=== PATIENT | male | born 1995 | race Native Hawaiian/Other Pacific Islander ===

== ENCOUNTER 2023-05-15 08:32 | Emergency (ER) | payer SELFPAY ==
[2023-05-15 10:46] LABS: SARS-CoV-2 Antigen Rapid Res Negative (Negative)
--- NOTE | 2023-05-15 10:49 | ER ---
Nurse's Notes [facility] Name: Uvaldo Dillon Age: 27 yrs Sex: Male : 1995 Arrival Date: 05/15/2023 Time: 08:32 Bed 11 Private MD: Diagnosis: Acute upper respiratory infection, unspecified Presentation: 05/15 08:45 Chief complaint: Patient states: Sore throat, cough, congestion, CUEVAS, fatigue, fells hot ll1 for 4-5 days. Coronavirus screen: Vaccine status: Patient reports being unvaccinated. Client denies travel out of the [place] in the last 14 days. congestion, cough unrelated to allergies, fatigue, headache, sore throat, Client presents with at least one sign or symptom that may indicate coronavirus-19. Standard/surgical mask placed on the client. Ebola Screen: Patient denies travel to an Ebola-affected area in the 21 days before illness onset. Initial Sepsis Screen: Does the patient meet any 2 criteria? No. Patient's initial sepsis screen is negative. Does the patient have a suspected source of infection? Yes: Productive cough/pneumonia. Risk Assessment: Do you want to hurt yourself or someone else? Patient reports no desire to harm self or others. Onset of symptoms was May 10, 2023. 08:45 Method Of Arrival: Ambulatory ll1 08:45 Acuity: ENRIQUE 4 ll1 Triage Assessment: 08:46 General: Appears in no apparent distress. Behavior is calm, cooperative, appropriate ll1 for age. Pain: Denies pain. EENT: Reports nasal congestion pain when swallowing. Respiratory: Reports cough that is. GI: Reports "soft" stools. Historical: - Allergies: 08:44 seafood; ll1 08:44 Iodine; ll1 - Home Meds: 08:44 None [Active]; ll1 - PMHx: 08:44 None; ll1 - PSHx: 08:44 None; ll1 - Immunization history:: Client reports having NOT received the Covid vaccine. - Social history:: Smoking status: Patient reports the use of cigarette tobacco products, smokes one-half pack cigarettes per day, Reported history of juuling and/or vaping. Screenin:52 [facility] ED Fall Risk Assessment (Adult) History of falling in the last 3 months, bp including since admission No falls in past 3 months (0 pts). Abuse screen: Denies threats or abuse. Denies injuries from another. Nutritional screening: No deficits noted. Tuberculosis screening: No symptoms or risk factors identified. Assessment: 08:52 General: SEE TRIAGE NOTE. bp 10:45 Reassessment: No changes from previously documented assessment. Patient and/or family ll1 updated on plan of care and expected duration. Pain level reassessed. Patient is alert, oriented x 3, equal unlabored respirations, skin warm/dry/pink. 10:57 Respiratory: Airway is patent Respiratory effort is even, unlabored, Breath sounds are ll1 clear bilaterally. EENT: Nares with drainage noted Throat is reddened. Vital Signs: 08:45 BP 138 / 86; Pulse 60; Resp 16; Temp 97.9; Pulse Ox 100% on R/A; Weight 74.84 kg; ll1 Height 5 ft. 11 in. ; Pain 5/10; 10:55 BP 136 / 87; Pulse 56; Resp 17; Pulse Ox 100% ; ll1 08:45 Body Mass Index 23.01 (74.84 kg, 180.34 cm) ll1 08:45 Pain Scale: Adult ll1 ED Course: 08:34 Patient arrived in ED. rg4 08:36 Arm band placed on Patient placed in an exam room, on a stretcher. ll1 08:39 Nikos Mcqueen, JOY is Primary Nurse. bp 08:46 Triage completed. ll1 08:51 Lashanda Rodriguez PA-C is PHCP. sb4 08:51 Thong Holt MD is Attending Physician. sb4 08:52 Patient has correct armband on for positive identification. Bed in low position. Call bp light in reach. Side rails up X2. 10:12 Strep Sent. ds4 10:12 Flu Sent. ds4 10:12 SARS-COV-2 Antigen Rapid Sent. ds4 10:57 No provider procedures requiring assistance completed. Patient did not have IV access ll1 during this emergency room visit. 12:03 Provided Education on: n/a. ll1 Administered Medications: No medications were administered Medication: 08:52 VIS not applicable for this client. bp Outcome: 10:48 Discharge ordered by . sb4 10:57 Patient left the ED. ll1 10:57 Discharged to home ambulatory. ll1 10:57 Condition: stable 10:57 Discharge instructions given to patient, Instructed on discharge instructions, follow up and referral plans. medication usage, Demonstrated understanding of instructions, follow-up care, medications, Prescriptions given X 2. Signatures: Adalberto Hayes ds4 Yin Streeter4 Nikos Mcqueen, RN RN bp Carlotta Urbina RN RN ll1 Lashanda Rodriguez, PAHaimC PAVivian sb4
--- NOTE | 2023-05-15 10:49 | EDPHYS ---
Physician Documentation [facility] [place], [place] Name: Uvaldo Dillon Age: 27 yrs Sex: Male : 1995 Arrival Date: 05/15/2023 Time: 08:32 Bed 11 Private MD: ED Physician Thong Holt HPI: 05/15 10:54 This 27 yrs old Male presents to ER via Ambulatory with complaints of Cough, Sore sb4 Throat. 10:54 27 year old male presents with productive cough, sore throat, generalized weakness x 1 sb4 week. He states that he has been working and hasn't had the chance to be evaluated. Reports that his girlfriend was diagnosed with tonsilitis last week and has been taking anitbiotics. Historical: - Allergies: 08:44 seafood; ll1 08:44 Iodine; ll1 - Home Meds: 08:44 None [Active]; ll1 - PMHx: 08:44 None; ll1 - PSHx: 08:44 None; ll1 - Immunization history:: Client reports having NOT received the Covid vaccine. - Social history:: Smoking status: Patient reports the use of cigarette tobacco products, smokes one-half pack cigarettes per day, Reported history of juuling and/or vaping. ROS: 10:54 Constitutional: Negative for fever, chills, and weight loss. sb4 10:54 ENT: Positive for sinus congestion, sore throat, Negative for drainage from ear(s), rhinorrhea, difficulty swallowing, difficulty handling secretions. 10:54 Respiratory: Positive for cough, with green sputum, Negative for dyspnea on exertion, hemoptysis, shortness of breath. 10:54 All other systems are negative. Exam: 10:54 Constitutional: This is a well developed, well nourished patient who is awake, alert, sb4 and in no acute distress. Head/Face: Normocephalic, atraumatic. Eyes: Extra-ocular motions intact. Periorbital areas with no swelling, redness, or edema. Cardiovascular: Regular rate and rhythm with a normal S1 and S2. Respiratory: Lungs have equal breath sounds bilaterally, clear to auscultation and percussion. No rales, rhonchi or wheezes noted. No increased work of breathing, no retractions or nasal flaring. Abdomen/GI: Soft, non-tender, no distension. Skin: Warm, dry with normal turgor. Normal color with no rashes, no lesions, and no evidence of cellulitis. MS/ Extremity: Pulses equal, no cyanosis. Neurovascular intact. Full, normal range of motion. Vital Signs: 08:45 BP 138 / 86; Pulse 60; Resp 16; Temp 97.9; Pulse Ox 100% on R/A; Weight 74.84 kg; ll1 Height 5 ft. 11 in. ; Pain 5/10; 10:55 BP 136 / 87; Pulse 56; Resp 17; Pulse Ox 100% ; ll1 08:45 Body Mass Index 23.01 (74.84 kg, 180.34 cm) ll1 08:45 Pain Scale: Adult ll1 MDM: 08:51 Patient medically screened. sb4 10:54 Differential Diagnosis: Bronchitis Influenza Upper Respiratory Infection Sinusitis sb4 Pharyngitis Viral Syndrome Pneumonia. Data reviewed: vital signs, nurses notes, lab test result(s), and as a result, I will discharge patient. Counseling: I had a detailed discussion with the patient and/or guardian regarding: the historical points, exam findings, and any diagnostic results supporting the discharge/admit diagnosis, lab results, to return to the emergency department if symptoms worsen or persist or if there are any questions or concerns that arise at home. 05/15 08:56 Order name: SARS-COV-2 Antigen Rapid; Complete Time: 10:47 sb4 05/15 08:56 Order name: Flu; Complete Time: 10:47 sb4 05/15 08:56 Order name: Strep sb4 05/15 10:47 Order name: Throat Culture EDMS Administered Medications: No medications were administered Disposition: 13:16 Co-signature as Attending Physician, Thong Holt MD I reviewed the patient's care rn provided by the Advanced Practice Provider and agree with the diagnosis and treatment plan. Disposition Summary: 05/15/23 10:48 Discharge Ordered Location: Home sb4 Problem: an ongoing problem sb4 Symptoms: are unchanged sb4 Condition: Stable sb4 Diagnosis - Acute upper respiratory infection, unspecified sb4 Followup: sb4 - With: Private Physician - When: As needed - Reason: Recheck today's complaints, Continuance of care, Re-evaluation by your physician Discharge Instructions: - Discharge Summary Sheet ll1 - Upper Respiratory Infection, Adult, [id number] sb4 Forms: - Work release form ll1 - Medication Reconciliation Form sb4 - Thank You Letter sb4 - Antibiotic Education sb4 - Prescription Opioid Use sb4 - [email or web address] sb4 Prescriptions: - Augmentin 875-125 mg Oral Tablet - take 1 tablet by ORAL route every 12 hours for 10 days; 20 tablet; Refills: 0, sb4 Product Selection Permitted - Tessalon Perles 100 mg Oral Capsule - take 1 capsule by ORAL route every 8 hours As needed; 15 capsule; Refills: 0, sb4 Product Selection Permitted Signatures: Dispatcher [employer] Thong Acosta MD MD rn Lewis, Lynsay, RN RN ll1 Lashanda Rodriguez PA-C PA-C sb4
[2023-05-15 11:40] VITALS: BP 138/86; TEMP 97.9; O2SAT 100
== END 2023-05-15 10:57 | disposition home or self-care (01) ==
LOC: ER 08:32
DX: J06.9 Acute upper respiratory infection, unspecified (principal); F17.210 Nicotine dependence, cigarettes, uncomplicated; Z20.822 Contact with and (suspected) exposure to COVID-19; Z91.013 Allergy to seafood; Z91.048 Other nonmedicinal substance allergy status
CPT/HCPCS: 36415; 87070; 87081; 87804; 87811; 99283

== ENCOUNTER → 2024-01-03 | Emergency (ER) | payer SELFPAY ==
[2024-01-03 07:41] LABS: SARS-CoV-2 Antigen Rapid Res Negative (Negative)
--- NOTE | 2024-01-03 09:10 | EDPHYS ---
Physician Documentation [facility] Name: Uvaldo Dillon Age: 28 yrs Sex: Male : 1995 Arrival Date: 01/03/2024 Time: 06:45 Bed 12 Private MD: ED Physician Thong Holt HPI: 01/03 06:55 This 28 yrs old Male presents to ER via Unassigned with complaints of Cough, sp4 Congestion, Sore Throat. 07:13 The patient or guardian reports cough, flu symptoms, myalgias, no appetite. Onset: The rn symptoms/episode began/occurred 5 day(s) ago. Severity of symptoms: At their worst the symptoms were mild, in the emergency department the symptoms are unchanged. Modifying factors: The symptoms are alleviated by nothing, the symptoms are aggravated by nothing. Associated signs and symptoms: Pertinent positives: diarrhea, fever, rhinorrhea, sore throat, Pertinent negatives: vomiting. The patient has not experienced similar symptoms in the past. The patient has not recently seen a physician. Historical: - Allergies: 07:01 Iodine; jb4 07:01 SEAFOOD; jb4 - PMHx: 07:05 None; jb4 - PSHx: 07:05 None; jb4 - Immunization history:: Adult Immunizations up to date. - Social history:: Smoking status: Reported history of juuling and/or vaping. - Family history:: not pertinent. - Hospitalizations: : No recent hospitalization is reported. ROS: 07:13 Constitutional: + subjective fever and chills Cardiovascular: Negative for chest pain, rn palpitations, and edema, Respiratory: + cough Abdomen/GI: + nausea/vomiting/diarrhea MS/Extremity: Negative for injury and deformity, Skin: Negative for injury, rash, and discoloration, Neuro: + generalized weakness, + headache Exam: 07:13 Constitutional: This is a well developed, well nourished patient who is awake, alert, rn and in no acute distress. Head/Face: Normocephalic, atraumatic. ENT: Clear nasal drainage, no stridor, mild pharyngeal erythema Neck: Trachea midline, no cervical lymphadenopathy. Supple, full range of motion without nuchal rigidity, or vertebral point tenderness. No Meningismus. Cardiovascular: Regular rate and rhythm. No pulse deficits. Respiratory: No increased work of breathing, no retractions or nasal flaring. Abdomen/GI: Soft, non-tender Neuro: Awake and alert, GCS 15 Vital Signs: 07:05 BP 141 / 73; Pulse 65; Resp 16; Temp 98.3; Pulse Ox 100% ; Weight 79.38 kg; Height 5 jb4 ft. 11 in. ; Pain 4/10; 09:16 BP 135 / 96; Pulse 85; Resp 16; Pulse Ox 100% on R/A; ll1 07:05 Body Mass Index 24.41 (79.38 kg, 180.34 cm) jb4 07:05 Pain Scale: Adult jb4 MDM: 06:57 Patient medically screened. sp4 09:08 Differential Diagnosis: Influenza Upper Respiratory Infection Sinusitis Pharyngitis rn Viral Syndrome. Data reviewed: vital signs, nurses notes, lab test result(s), and as a result, I will discharge patient. Counseling: I had a detailed discussion with the patient and/or guardian regarding the historical points, exam findings, and any diagnostic results supporting the discharge/admit diagnosis, lab results, the need for outpatient follow up, to return to the emergency department if symptoms worsen or persist or if there are any questions or concerns that arise at home. Special discussion: I discussed with the patient/guardian in detail that at this point there is no indication for admission to the hospital. It is understood, however, that if the symptoms persist or worsen the patient needs to return immediately for re-evaluation. 09:09 ED course: Patient outside of treatment window for Tamiflu.. rn 01/03 06:55 Order name: SARS RAPID sp4 01/03 06:55 Order name: Influenza Screen (a \T\ B) 4 01/03 07:10 Order name: Strep rn 01/03 07:45 Order name: Throat Culture EDMS Administered Medications: No medications were administered Disposition Summary: 01/03/24 09:08 Discharge Ordered Notes: Location: Home rn Problem: new rn Symptoms: have improved rn Condition: Stable rn Diagnosis - Influenza due to identified novel influenza A virus with other respiratory rn manifestations Followup: rn - With: Private Physician - When: As needed - Reason: Recheck today's complaints, Re-evaluation by your physician Discharge Instructions: - Influenza, Adult rn - Discharge Summary Sheet ll1 Forms: - Medication Reconciliation Form rn - Thank You Letter rn - Antibiotic pattern and chain maker - Prescription Opioid Use rn - Patient Portal Instructions rn - Leadership Thank You Letter rn - Work release form ll1 Signatures: Dispatcher [employer] Thong Acosta MD MD rn Bryson, James, RN RN jb4 Jefe Somers MD MD sp4
--- NOTE | 2024-01-03 09:10 | ER ---
Nurse's Notes [facility] Name: Uvaldo Dillon Age: 28 yrs Sex: Male : 1995 Arrival Date: 01/03/2024 Time: 06:45 Bed 12 Private MD: Diagnosis: Influenza due to identified novel influenza A virus with other respiratory manifestations Presentation: 01/03 07:05 Chief complaint: Patient states: Cough, congestion, sore throat, body aches, CUEVAS since jb4 Monday. Coronavirus screen: Vaccine status: Patient reports being unvaccinated. Client denies travel out of the [place] in the last 14 days. congestion, cough unrelated to allergies, fatigue, headache, runny nose, Client presents with at least one sign or symptom that may indicate coronavirus-19. Standard/surgical mask placed on the client. Ebola Screen: Patient denies travel to an Ebola-affected area in the 21 days before illness onset. Resp Distress? No respiratory distress is noted at this time. Initial Sepsis Screen: Does the patient meet any 2 criteria? No. Patient's initial sepsis screen is negative. Does the patient have a suspected source of infection? No. Patient's initial sepsis screen is negative. Risk Assessment: Do you want to hurt yourself or someone else? Patient reports no desire to harm self or others. Onset of symptoms was December 30, 2023. 07:05 Method Of Arrival: Ambulatory jb4 07:05 Acuity: ENRIQUE 4 jb4 Triage Assessment: 08:46 General: Appears uncomfortable, Behavior is calm, cooperative, appropriate for age. ll1 Pain: Complains of pain in head Quality of pain is described as aching. EENT: Reports pain when swallowing. Neuro: Reports headache. Respiratory: Reports cough that is. 09:17 Respiratory: Breath sounds are clear bilaterally. ll1 Historical: - Allergies: 07:01 Iodine; jb4 07:01 SEAFOOD; jb4 - PMHx: 07:05 None; jb4 - PSHx: 07:05 None; jb4 - Immunization history:: Adult Immunizations up to date. - Social history:: Smoking status: Reported history of juuling and/or vaping. - Family history:: not pertinent. - Hospitalizations: : No recent hospitalization is reported. Screenin:12 [facility] ED Fall Risk Assessment (Adult) Score/Fall Risk Level 0 - 2 = Low Risk jb4 Oriented to surroundings, Maintained a safe environment, Educated pt \T\ family on fall prevention, incl call for assistance when getting out of bed, Hourly rounding (assess needs \T\ fall precautionary measures) done. Abuse screen: Denies threats or abuse. Nutritional screening: No deficits noted. Tuberculosis screening: No symptoms or risk factors identified. Assessment: 07:12 General: Appears in no apparent distress. Behavior is calm, cooperative, appropriate jb4 for age. Pain: Complains of pain in head Pain currently is 4 out of 10 on a pain scale. Quality of pain is described as aching. Neuro: Reports headache. Cardiovascular: Capillary refill < 3 seconds Clubbing of nail beds is absent Patient's skin is warm and dry. Respiratory: Reports cough that is Airway is patent. EENT: Reports nasal congestion pain when swallowing. 07:19 Reassessment: No changes from previously documented assessment. Patient and/or family jb4 updated on plan of care and expected duration. Pain level reassessed. Patient is alert, oriented x 3, equal unlabored respirations, skin warm/dry/pink. 08:25 Reassessment: No changes from previously documented assessment. Patient and/or family ll1 updated on plan of care and expected duration. Pain level reassessed. Patient is alert, oriented x 3, equal unlabored respirations, skin warm/dry/pink. 09:16 Reassessment: No changes from previously documented assessment. Patient and/or family ll1 updated on plan of care and expected duration. Pain level reassessed. Patient is alert, oriented x 3, equal unlabored respirations, skin warm/dry/pink. Vital Signs: 07:05 BP 141 / 73; Pulse 65; Resp 16; Temp 98.3; Pulse Ox 100% ; Weight 79.38 kg; Height 5 jb4 ft. 11 in. ; Pain 4/10; 09:16 BP 135 / 96; Pulse 85; Resp 16; Pulse Ox 100% on R/A; ll1 07:05 Body Mass Index 24.41 (79.38 kg, 180.34 cm) jb4 07:05 Pain Scale: Adult jb4 ED Course: 06:48 Patient arrived in ED. jj6 06:55 Jefe Somers MD is Attending Physician. sp4 07:01 Arm band placed on. jb4 07:06 Triage completed. jb4 07:06 Patient placed in an exam room, on a stretcher. jb4 07:09 Attending Physician role handed off by Jefe Somers MD rn 07:09 Thong Holt MD is Attending Physician. rn 07:11 Nitin Faust, RN is Primary Nurse. jb4 07:11 Influenza Screen (a \T\ B) Sent. jb4 07:11 SARS RAPID Sent. jb4 07:13 Patient has correct armband on for positive identification. Bed in low position. Call jb4 light in reach. Provided Education on: ER procedures and process. Cardiac monitoring not applicable on this patient. 07:19 Strep Sent. jb4 09:17 No provider procedures requiring assistance completed. Patient did not have IV access ll1 during this emergency room visit. Administered Medications: No medications were administered Medication: 09:17 VIS not applicable for this client. ll1 Outcome: 09:08 Discharge ordered by MD. rn 09:17 Discharged to home ambulatory, ll1 09:17 Condition: stable 09:17 Discharge instructions given to patient, Instructed on discharge instructions, follow up and referral plans. Demonstrated understanding of instructions, follow-up care, 09:17 Patient left the ED. ll1 Signatures: Thong Holt MD MD rn Bryson, James, RN RN jb4 Lewis, Lynsay, RN RN ll1 Alexandria Muhammad jj6 Jefe Somers MD MD sp4 Corrections: (The following items were deleted from the chart) 07:12 07:05 BP 141 / 73; Pulse 65bpm; Resp 16bpm; Pulse Ox 100%; 79.38 kg; Height 5 ft. 11 jb4 in.; BMI: 24.4; Pain 4/10, Adult; jb4
[2024-01-03 09:45] VITALS: BP 135/96; TEMP 98.3; O2SAT 100
== END ==
LOC: ER 06:45
DX: J10.1 Influenza due to other identified influenza virus with other respiratory manifestations (principal); Z11.52 Encounter for screening for COVID-19; Z91.013 Allergy to seafood; Z91.048 Other nonmedicinal substance allergy status
CPT/HCPCS: 36415; 87070; 87081; 87804; 87811

== ENCOUNTER 2025-02-18 21:09 | Emergency (ER) | payer SELFPAY ==
--- NOTE | 2025-02-18 22:04 | EDPHYS ---
Physician Documentation [facility] Name: Uvaldo Dillon Age: 29 yrs Sex: Male : 1995 Arrival Date: 02/18/2025 Time: 21:09 Bed IW3 Private MD: ED Physician Yusef Oshea HPI: 02/18 21:58 This 29 yrs old Male presents to ER via Ambulatory with complaints of Cyst, ronak Groin Pain. 21:58 The patient presents with an abscess of the right leg, The patient presents with ronak cellulitis of the right leg. Description: The affected area is small, moderate sized, localized, erythematous, fluctuant, raised, swollen. Onset: The symptoms/episode began/occurred 1 day(s) ago. Associated signs and symptoms: The patient has no apparent associated signs or symptoms. Severity of symptoms: At their worst the symptoms were mild, moderate, in the emergency department the symptoms are unchanged. The patient has not experienced similar symptoms in the past. Historical: - Allergies: 21:45 Iodine; bm8 21:45 SEAFOOD; bm8 - Home Meds: 21:45 None [Active]; bm8 - PMHx: 21:45 None; bm8 - PSHx: 21:45 None; bm8 - Immunization history:: Adult Immunizations not up to date. - Infectious Disease History:: Denies. - Social history:: Smoking status: Reported history of juuling and/or vaping. - Family history:: not pertinent. ROS: 21:58 Constitutional: Negative for fever, chills, and weight loss, Eyes: Negative for injury, ronak pain, redness, and discharge, ENT: Negative for injury, pain, and discharge, Neck: Negative for injury, pain, and swelling, Cardiovascular: Negative for chest pain, palpitations, and edema, Respiratory: Negative for shortness of breath, cough, wheezing, and pleuritic chest pain, Abdomen/GI: Negative for abdominal pain, nausea, vomiting, diarrhea, and constipation, Back: Negative for injury and pain, : Negative for injury, bleeding, discharge, and swelling, Skin: Negative for injury, rash, and discoloration, Neuro: Negative for headache, weakness, numbness, tingling, and seizure, Psych: Negative for depression, anxiety, suicide ideation, homicidal ideation, and hallucinations, Allergy/Immunology: Negative for hives, rash, and allergies, Endocrine: Negative for neck swelling, polydipsia, polyuria, polyphagia, and marked weight changes, Hematologic/Lymphatic: Negative for swollen nodes, abnormal bleeding, and unusual bruising, 21:58 MS/extremity: Positive for decreased range of motion, erythema, pain, swelling, tenderness, of the right leg, Exam: 22:00 Constitutional: This is a well developed, well nourished patient who is awake, alert, ronak and in no acute distress. Head/Face: Normocephalic, atraumatic. Eyes: Pupils equal round and reactive to light, extra-ocular motions intact. Lids and lashes normal. Conjunctiva and sclera are non-icteric and not injected. Cornea within normal limits. Periorbital areas with no swelling, redness, or edema. ENT: Nares patent. No nasal discharge, no septal abnormalities noted. Tympanic membranes are normal and external auditory canals are clear. Oropharynx with no redness, swelling, or masses, exudates, or evidence of obstruction, uvula midline. Mucous membranes moist. Neck: Trachea midline, no thyromegaly or masses palpated, and no cervical lymphadenopathy. Supple, full range of motion without nuchal rigidity, or vertebral point tenderness. No Meningismus. Chest/axilla: Normal chest wall appearance and motion. Nontender with no deformity. No lesions are appreciated. Cardiovascular: Regular rate and rhythm with a normal S1 and S2. No gallops, murmurs, or rubs. Normal PMI, no JVD. No pulse deficits. Respiratory: Lungs have equal breath sounds bilaterally, clear to auscultation and percussion. No rales, rhonchi or wheezes noted. No increased work of breathing, no retractions or nasal flaring. Abdomen/GI: Soft, non-tender, with normal bowel sounds. No distension or tympany. No guarding or rebound. No evidence of tenderness throughout. Back: No spinal tenderness. No costovertebral tenderness. Full range of motion. Male : Normal genitalia with no discharge or lesions. MS/ Extremity: Pulses equal, no cyanosis. Neurovascular intact. Full, normal range of motion., bilateral aka Neuro: Awake and alert, GCS 15, oriented to person, place, time, and situation. Cranial nerves II-XII grossly intact. Motor strength 5/5 in all extremities. Sensory grossly intact. Cerebellar exam normal. Normal gait. Psych: Awake, alert, with orientation to person, place and time. Behavior, mood, and affect are within normal limits. 22:00 Skin: Appearance: Color: normal in color, Temperature: normal temperature, Moisture: normal moisture, petechiae, not noted, ecchymosis, not noted, flushing, not noted, diaphoresis is not appreciated, abscess, that is small, that is moderate sized, of the right inner thigh, with induration, with pointing, with surrounding cellulitis, that is mild, that is moderate, cellulitis, that is mild, that is moderate, induration, that is mild is noted, Vital Signs: 21:43 BP 138 / 76; Pulse 92; Resp 18; Temp 98.4; Pulse Ox 100% ; Weight 77.11 kg; Height 5 bm8 ft. 11 in. ; Pain 9/10; 21:43 Body Mass Index 23.71 (77.11 kg, 180.34 cm) bm8 21:43 Pain Scale: Adult bm8 MDM: 21:20 Medical Screening Exam initiated ronak 22:01 Differential diagnosis: abscess, allergic reaction, cellulitis, insect bite. Data ronak reviewed: vital signs, nurses notes. Consideration of Admission/Observation Patient was admitted/placed on observation. Escalation of care including admission/observation considered. I considered the following discharge prescriptions or medication management in the emergency department Medications were administered in the Emergency Department. See MAR. Independent interpretation of the following test(s) in the Emergency Department. Test considered but Not performed: Labs: no labs. Care significantly affected by the following chronic conditions: none. Administered Medications: 22:23 Drug: Ibuprofen PO 600 mg PO once Route: PO; vc1 22:23 Follow up: Response: Medication administered at discharge. vc1 22:23 Drug: Doxycycline PO 200 mg PO once Route: PO; vc1 22:23 Follow up: Response: Medication administered at discharge. vc1 22:23 Drug: Trimethoprim-Sulfamethoxazole PO (160 mg-800 mg (DS) 2 tablet PO once Route: PO; vc1 22:23 Follow up: Response: Medication administered at discharge. vc1 Disposition Summary: 02/18/25 22:04 Discharge Ordered Notes: Location: Home ronak Problem: new ronak Symptoms: have improved ronak Condition: Stable ronak Diagnosis - Cutaneous abscess of groin ronak - Cellulitis of groin [facility] Followup: ronak - With: Private Physician - When: 2 - 3 days - Reason: Recheck today's complaints, Continuance of care, Re-evaluation by your physician Followup: [facility] - With: Maurice Mclean MD - When: Tomorrow - Reason: Recheck today's complaints, Continuance of care, Re-evaluation by your physician Discharge Instructions: - Discharge Summary Sheet [facility] - Skin Abscess ronak - Cellulitis, Adult [facility] - How to Take a Sitz Bath ronak - Skin Abscess, [id number] ronak - Cellulitis, Adult, Panr-ab-Rimy [facility] - Lymphangitis, Adult [facility] Forms: - Medication Reconciliation Form [facility] - Antibiotic Education [facility] - Prescription Opioid Use [facility] - Patient Portal Instructions [facility] - Leadership Thank You Letter [facility] Prescriptions: - Ibuprofen 600 mg Oral Tablet - take 1 tablet ORAL route every 6 hours As needed take with food; 30 tablet; [facility] Refills: 0, Product Selection Permitted - Doxycycline Hyclate 100 mg Oral Tablet - take 1 tablet ORAL route every 12 hours; 20 tablet; Refills: 0, Product [facility] Selection Permitted - Bactrim DS 800-160 mg Oral tablet - take 1 tablet ORAL route every 12 hours for 10 days; 20 tablet; Refills: 0, [facility] Product Selection Permitted Signatures: Yusef Oshea MD MD cha Calcote, Vanessa, RN RN vc1 Jace Alvarez RN RN bm8
--- NOTE | 2025-02-18 22:04 | ER ---
Nurse's Notes [facility] Name: Uvaldo Dillon Age: 29 yrs Sex: Male : 1995 Arrival Date: 02/18/2025 Time: 21:09 Bed IW3 Private MD: Diagnosis: Cutaneous abscess of groin;Cellulitis of groin Presentation: 02/18 21:43 Chief complaint: Patient states: I have this welp or cycst or abscess on my right groin bm8 that started four days ago. Coronavirus screen: At this time, the client does not indicate any symptoms associated with coronavirus-19. Ebola Screen: Patient negative for fever greater than or equal to 101.5 degrees Fahrenheit, and additional compatible Ebola Virus Disease symptoms No symptoms or risks identified at this time. Initial Sepsis Screen: Does the patient meet any 2 criteria? No. Patient's initial sepsis screen is negative. Does the patient have a suspected source of infection? No. Patient's initial sepsis screen is negative. Risk Assessment: Do you want to hurt yourself or someone else? Patient reports no desire to harm self or others. Onset of symptoms was February 14, 2025. 21:43 Method Of Arrival: Ambulatory bm8 21:43 Acuity: ENRIQUE 3 bm8 Triage Assessment: 21:45 General: Appears in no apparent distress. comfortable, Behavior is calm, cooperative, bm8 appropriate for age. Pain: Complains of pain in right femoral area Pain currently is 9 out of 10 on a pain scale. Neuro: No deficits noted. Cardiovascular: No deficits noted. Respiratory: No deficits noted. Derm: Abscess located on right femoral area. Historical: - Allergies: 21:45 Iodine; bm8 21:45 SEAFOOD; bm8 - Home Meds: 21:45 None [Active]; bm8 - PMHx: 21:45 None; bm8 - PSHx: 21:45 None; bm8 - Immunization history:: Adult Immunizations not up to date. - Infectious Disease History:: Denies. - Social history:: Smoking status: Reported history of juuling and/or vaping. - Family history:: not pertinent. Screenin:24 [facility] ED Fall Risk Assessment (Adult) History of falling in the last 3 months, vc1 including since admission No falls in past 3 months (0 pts) Confusion or Disorientation No (0 pts) Intoxicated or Sedated No (0 pts) Impaired Gait No (0 pts) Mobility Assist Device Used No (0 pt) Altered Elimination No (0 pt) Score/Fall Risk Level 0 - 2 = Low Risk Oriented to surroundings, Maintained a safe environment, Educated pt \T\ family on fall prevention, incl call for assistance when getting out of bed. Abuse screen: Denies threats or abuse. Nutritional screening: No deficits noted. Tuberculosis screening: No symptoms or risk factors identified. Vital Signs: 21:43 BP 138 / 76; Pulse 92; Resp 18; Temp 98.4; Pulse Ox 100% ; Weight 77.11 kg; Height 5 bm8 ft. 11 in. ; Pain 9/10; 21:43 Body Mass Index 23.71 (77.11 kg, 180.34 cm) bm8 21:43 Pain Scale: Adult bm8 ED Course: 21:14 Patient arrived in ED. gm2 21:20 Yusef Oshea MD is Attending Physician. ronak 21:45 Triage completed. bm8 21:45 Arm band placed on right wrist. Patient placed. bm8 22:03 Maurice Mclean MD is Referral Physician. ronak 22:25 Patient has correct armband on for positive identification. Provided Education on: f/u vc1 with surgeon. 22:25 No provider procedures requiring assistance completed. Patient did not have IV access vc1 during this emergency room visit. Administered Medications: 22:23 Drug: Ibuprofen PO 600 mg PO once Route: PO; vc1 22:23 Follow up: Response: Medication administered at discharge. vc1 22:23 Drug: Doxycycline PO 200 mg PO once Route: PO; vc1 22:23 Follow up: Response: Medication administered at discharge. vc1 22:23 Drug: Trimethoprim-Sulfamethoxazole PO (160 mg-800 mg (DS) 2 tablet PO once Route: PO; vc1 22:23 Follow up: Response: Medication administered at discharge. vc1 Medication: 22:25 VIS not applicable for this client. vc1 Outcome: 22:04 Discharge ordered by . ornak 22:24 Discharged to home ambulatory, with significant other, vc1 22:24 Condition: stable 22:24 Discharge instructions given to patient, Instructed on discharge instructions, follow up and referral plans. medication usage, Demonstrated understanding of instructions, follow-up care, medications, Prescriptions given X 3, 22:26 Patient left the ED. vc1 Signatures: Yusef Oshea MD MD cha Calcote, Vanessa RN RN vc1 Shawna Huang gm2 Jace Alvarez RN RN bm8
[2025-02-18] MEDS ORDERED: IBUPROFEN 200 MG TAB PO ONE (22:18)
[2025-02-18] MEDS ORDERED: SMZ./TMP. 800/160 MG TABLET ONE (22:18)
[2025-02-18] MEDS ORDERED: DOXYCYCLINE 100 MG CAP PO ONE (22:19)
[2025-02-18 22:30] VITALS: BP 138/76; TEMP 98.4; O2SAT 100
== END 2025-02-18 22:26 | disposition home or self-care (01) ==
LOC: ER 21:09
DX: L03.314 Cellulitis of groin (principal)

== ENCOUNTER 2025-08-15 14:37 | Emergency (ER) | payer SELFPAY ==
--- NOTE | 2025-08-15 14:54 | ER ---
Nurse's Notes [facility] Name: Uvaldo Dillon Age: 29 yrs Sex: Male : 1995 Arrival Date: 08/15/2025 Time: 14:37 Bed DX3 Private MD: Diagnosis: Disorder of teeth and supporting structures, unspecified Presentation: 08/15 14:42 Chief complaint: Patient states: pain to left lower wisdom tooth and jaw for about 1 me1 week or 1.5 weeks. Pain is 10/10. Has a dentist appt for next week but his pain is getting worse. Coronavirus screen: At this time, the client does not indicate any symptoms associated with coronavirus-19. Ebola Screen: No symptoms or risks identified at this time. Initial Sepsis Screen: Does the patient meet any 2 criteria? No. Patient's initial sepsis screen is negative. Does the patient have a suspected source of infection? No. Patient's initial sepsis screen is negative. Risk Assessment: Do you want to hurt yourself or someone else? Patient reports no desire to harm self or others. Onset of symptoms is unknown. 14:42 Method Of Arrival: Ambulatory ak1 14:42 Acuity: ENRIQUE 5 me1 Triage Assessment: 14:45 General: Appears uncomfortable, well groomed, well developed, well nourished, Behavior me1 is calm, cooperative, appropriate for age, Reports left lower wisdom tooth pain that started about 1.5 weeks ago. Pain 10/10. Pain: Complains of pain in lower left third molar Pain does not radiate. Pain currently is 10 out of 10 on a pain scale. Quality of pain is described as throbbing, Pain began gradually, Is continuous. EENT: Reports pain in lower left third molar. Neuro: Level of Consciousness is awake, alert, obeys commands, Oriented to person, place, time, situation, Appropriate for age. Cardiovascular: Patient's skin is warm and dry. Respiratory: Airway is patent Respiratory effort is even, unlabored, Respiratory pattern is regular, symmetrical. GI: No signs and/or symptoms were reported involving the gastrointestinal system. : No signs and/or symptoms were reported regarding the genitourinary system. Derm: Skin is intact, is healthy with good turgor, Skin is pink, warm \T\ dry. Musculoskeletal: Circulation, motion, and sensation intact. Range of motion: intact in all extremities. Historical: - Allergies: 14:44 Iodine; me1 14:44 SEAFOOD; me1 - Home Meds: 14:44 None [Active]; me1 - Immunization history:: Adult Immunizations up to date. - Infectious Disease History:: Denies. - Social history:: Smoking status: Patient reports the use of cigarette tobacco products, smokes one-half pack cigarettes per day. Screenin:[address] [facility] ED Fall Risk Assessment (Adult) History of falling in the last 3 months, me1 including since admission No falls in past 3 months (0 pts) Confusion or Disorientation No (0 pts) Intoxicated or Sedated No (0 pts) Impaired Gait No (0 pts) Mobility Assist Device Used No (0 pt) Altered Elimination No (0 pt) Score/Fall Risk Level 0 - 2 = Low Risk Maintained a safe environment, Provided non-skid footwear, Hourly rounding (assess needs \T\ fall precautionary measures) done. Abuse screen: Denies threats or abuse. Nutritional screening: No deficits noted. Tuberculosis screening: No symptoms or risk factors identified. Assessment: 14:48 General: See triage assessment. me1 15:05 Reassessment: Patient appears in no apparent distress at this time. Patient and/or iw family updated on plan of care and expected duration. Pain level reassessed. Patient is alert, oriented x 3, equal unlabored respirations, skin warm/dry/pink. Vital Signs: 14:42 BP 140 / 97; Pulse 76; Resp 16; Temp 98.9; Pulse Ox 100% ; Weight 72.57 kg; Height 5 me1 ft. 11 in. ; Pain 10/10; 14:42 Body Mass Index 22.32 (72.57 kg, 180.34 cm) me1 14:42 Pain Scale: Adult ak1 ED Course: 14:39 Patient arrived in ED. al6 14:42 Yusef Winkler PA-C is PHCP. cp 14:42 Yusef Oshea MD is Attending Physician. cp 14:43 Triage completed. me1 14:44 Arm band placed on Patient placed in waiting room. me1 14:48 Patient has correct armband on for positive identification. Provided Education on: POC. me1 Verbalized understanding.. 14:48 No provider procedures requiring assistance completed. Patient did not have IV access me1 during this emergency room visit. 14:49 Marti Arndt, RN is Primary Nurse. iw Administered Medications: 15:00 Drug: Amoxicillin-Clavulanate PO 875 mg PO once Route: PO; iw 15:06 Follow up: Response: No adverse reaction iw 15:00 Not Given (Physician Discretion): [id number] mg PO once iw 15:01 Drug: Ibuprofen PO 800 mg PO once Route: PO; iw 15:06 Follow up: Response: No adverse reaction iw Medication: 14:48 VIS not applicable for this client. me1 Outcome: 14:53 Discharge ordered by . barbra 15:06 Discharged to home ambulatory, iw 15:06 Condition: good 15:06 Discharge instructions given to patient, Instructed on discharge instructions, follow up and referral plans. medication usage, Demonstrated understanding of instructions, follow-up care, medications, Prescriptions given X 2, 15:07 Patient left the ED. iw Signatures: Marti Arndt, RN RN iw Yusef Winkler, PA-C PA-C Leighann Delgado RN RN me1 [email or web address] [email or web address] Corrections: (The following items were deleted from the chart) 14:45 14:44 PMHx: None; me1 me1
--- NOTE | 2025-08-15 14:54 | EDPHYS ---
Physician Documentation [facility] Name: Uvaldo Dillon Age: 29 yrs Sex: Male : 1995 Arrival Date: 08/15/2025 Time: 14:37 Bed DX3 Private MD: ED Physician Yusef Oshea HPI: 08/15 14:48 This 29 yrs old Male presents to ER via Ambulatory with complaints of Toothache. cp 14:48 The patient presents with pain. The problem is located in the left lower back molar. cp 14:48 Onset: The symptoms/episode began/occurred 1.5 week(s) ago. Duration: The symptoms are cp continuous, and are steadily getting worse. Associated signs and symptoms: Pertinent negatives: chills, dysphagia, fever, inability to eat. Severity of symptoms: in the emergency department the symptoms are unchanged, despite home interventions. Historical: - Allergies: 14:44 Iodine; me1 14:44 SEAFOOD; me1 - Home Meds: 14:44 None [Active]; me1 - Immunization history:: Adult Immunizations up to date. - Infectious Disease History:: Denies. - Social history:: Smoking status: Patient reports the use of cigarette tobacco products, smokes one-half pack cigarettes per day. ROS: 14:49 Eyes: Negative for injury, pain, redness, and discharge, cp 14:49 Constitutional: Negative for body aches, chills, fever, poor PO intake, 14:49 ENT: Positive for dental pain, Negative for drainage from ear(s), ear pain, sore throat, difficulty swallowing, difficulty handling secretions, 14:49 Respiratory: Negative for cough, shortness of breath, wheezing, 14:49 Abdomen/GI: Negative for abdominal pain, vomiting, diarrhea, constipation, 14:49 Neuro: Negative for altered mental status, dizziness, headache, Exam: 14:50 Head/Face: Normocephalic, atraumatic. cp 14:50 Constitutional: The patient appears in no acute distress, alert, awake, non-toxic, well developed, well nourished, uncomfortable, 14:50 Eyes: Periorbital structures: appear normal, Conjunctiva: normal, no exudate, no injection, Sclera: no appreciated abnormality, Lids and lashes: appear normal, bilaterally, 14:50 ENT: External ear(s): are unremarkable, Ear canal(s): are normal, clear, TM's: dullness, bilaterally, Nose: is normal, Mouth: Lips: moist, Oral mucosa: moist, Posterior pharynx: Airway: no evidence of obstruction, patent, Tonsils: are normal in appearance, erythema, is not appreciated, exudate, is not appreciated, Dental exam: abscess, is not appreciated, dental caries, that is mild, gum swelling, that is mild, specifically in the lower left third molar (#17), pain, that is moderate, specifically in the lower left third molar (#17), Voice: is normal, 14:50 Neck: ROM/movement: is normal, is supple, without pain, no range of motions limitations, Lymph nodes: no appreciated lymphadenopathy, 14:50 Chest/axilla: Inspection: normal, 14:50 Cardiovascular: Rate: normal, Rhythm: regular, cp 14:50 Respiratory: the patient does not display signs of respiratory distress, Respirations: normal, no use of accessory muscles, no retractions, labored breathing, is not present, Breath sounds: are clear throughout, no decreased breath sounds, no stridor, no wheezing, 14:50 Abdomen/GI: Exam negative for discomfort, distension, guarding, Inspection: abdomen appears normal, Vital Signs: 14:42 BP 140 / 97; Pulse 76; Resp 16; Temp 98.9; Pulse Ox 100% ; Weight 72.57 kg; Height 5 me1 ft. 11 in. ; Pain 10/10; 14:42 Body Mass Index 22.32 (72.57 kg, 180.34 cm) me1 14:42 Pain Scale: Adult me1 MDM: 14:43 Medical Screening Exam initiated cp 14:45 Differential diagnosis: dental caries, gingivitis, dental abscess, acute necrotizing cp ulcerative gingivitis, gingivostomatitis. 14:50 Data reviewed: vital signs, nurses notes, and as a result, I will discharge patient. cp 14:50 I considered the following discharge prescriptions or medication management in the emergency department Medications were administered in the Emergency Department. See MAR. Counseling: I had a detailed discussion with the patient and/or guardian regarding the historical points, exam findings, and any diagnostic results supporting the discharge/admit diagnosis, the need for outpatient follow up, a dentist, to return to the emergency department if symptoms worsen or persist or if there are any questions or concerns that arise at home. Administered Medications: 15:00 Drug: Amoxicillin-Clavulanate PO 875 mg PO once Route: PO; iw 15:06 Follow up: Response: No adverse reaction iw 15:00 Not Given (Physician Discretion): [id number] mg PO once iw 15:01 Drug: Ibuprofen PO 800 mg PO once Route: PO; iw 15:06 Follow up: Response: No adverse reaction iw Disposition: 08/16 06:33 Co-signature as Attending Physician, Yusef Oshea MD I agree with the assessment and ronak plan of care. Disposition Summary: 08/15/25 14:53 Discharge Ordered Notes: Location: Home cp Problem: new cp Symptoms: have improved cp Condition: Stable cp Diagnosis - Disorder of teeth and supporting structures, unspecified cp Followup: cp - With: Private Physician - When: 1 week - Reason: Recheck today's complaints Discharge Instructions: - Discharge Summary Sheet cp - Dental Pain cp Forms: - Medication Reconciliation Form cp - Antibiotic Education cp - Prescription Opioid Use cp - Patient Portal Instructions cp - Leadership Thank You Letter cp Prescriptions: - Amoxicillin 875 mg Oral Tablet - take 1 tablet ORAL route every 12 hours for 10 days; 20 tablet; Refills: 0, cp Product Selection Permitted - Anaprox DS 550 mg Oral Tablet - take 1 tablet ORAL route every 12 hours As needed; 20 tablet; Refills: 0, cp Product Selection Permitted Signatures: Yusef Oshea MD MD cha Williams, Irene, RN RN Yusef Antony, PA-C PA-C Leighann Delgado, RN RN me1 Corrections: (The following items were deleted from the chart) 08/15 14:45 14:44 PMHx: None; me1 me1
[2025-08-15] MEDS ORDERED: AMOX/K CLAV 875 MG TAB ONE (14:56)
[2025-08-15] MEDS ORDERED: IBUPROFEN 200 MG TAB PO ONE (14:57)
[2025-08-15 15:18] VITALS: BP 140/97; TEMP 98.9; O2SAT 100
== END 2025-08-15 15:07 | disposition home or self-care (01) ==
LOC: ER 14:37
DX: K08.89 Other specified disorders of teeth and supporting structures (principal)
CPT/HCPCS: 99283